=== PATIENT | male | born 1955 | race African-American/Black ===

== ENCOUNTER 2018-02-21 22:07 | Emergency (ER) | payer MEDICARE, OTHER ==
[2018-02-22] MEDS ORDERED: SODIUM CHLORIDE 0.9% 1,000 ML IV STA (00:18)
[2018-02-22] MEDS ORDERED: KETOROLAC 30 MG/ML 1 ML VIAL IM STA (00:25)
[2018-02-22] MEDS ORDERED: ONDANSETRON 4 MG/2 ML VIAL IVP STA (00:25)
[2018-02-22 00:30] LABS: Appearance,Urine Clear (Clear); Bilirubin,Urine Negative (Negative); Blood,Urine Negative (Negative); Color,Urine Light Yellow; Glucose,Urine (UA) Negative (Negative); Ketones,Urine Negative (Negative); Leukocyte Esterase,Urine Negative (Negative); Nitrite,Urine Negative (Negative); Protein,Urine Negative (Negative); Specific Gravity,Urine 1.011 (1.001-1.035); Urobilinogen,Urine <2.0 mg/dL (<2.0)
--- NOTE | 2018-02-22 00:36 | ED ---
General Adult HPI - General Chief complaint: Back Pain/Injury Stated complaint: Mental Health Time Seen by Provider: 02/21/18 23:54 Source: patient, RN notes reviewed Mode of arrival: ambulatory Limitations: no limitations - History of Present Illness Initial comments: 62-year-old male presents to the emergency department for a chief complaint of left flank pain times one week. Patient states the pain radiates around into his abdomen. Patient denies noticing any blood in the urine. Patient denies a history of kidney stones. Patient states he has vomited twice but is nauseous right now. Patient has been having normal bowel movements. Patient denies fevers or chills at home. Patient denies any abdominal surgeries besides a hernia repair years ago of the umbilicus.Patient has no other complaints at this time including shortness of breath, chest pain, abdominal pain, nausea or vomiting, headache, or visual changes. - Related Data Previous Rx's Medication Instructions Recorded Magnesium Citrate [Citrate of 296 ml PO ONCE #296 ml 02/22/18 Magnesia] Allergies Allergy/AdvReac Type Severity Reaction Status Date / Time No Known Allergies Allergy Verified 02/21/18 22:35 Review of Systems ROS Statement: Those systems with pertinent positive or pertinent negative responses have been documented in the HPI. ROS Other: All systems not noted in ROS Statement are negative. Past Medical History Past Medical History: No Reported History History of Any Multi-Drug Resistant Organisms: None Reported Past Surgical History: Orthopedic Surgery Past Psychological History: Depression Smoking Status: Current every day smoker Past Alcohol Use History: Heavy Past Drug Use History: None Reported General Exam Limitations: no limitations General appearance: alert, in no apparent distress Head exam: Present: atraumatic, normocephalic, normal inspection Eye exam: Present: normal appearance. Absent: scleral icterus, conjunctival injection ENT exam: Present: normal exam, mucous membranes moist Neck exam: Present: normal inspection, full ROM. Absent: tenderness, meningismus, lymphadenopathy Respiratory exam: Present: normal lung sounds bilaterally. Absent: respiratory distress, wheezes, rales, rhonchi, stridor Cardiovascular Exam: Present: regular rate, normal rhythm, normal heart sounds. Absent: systolic murmur, diastolic murmur, rubs, gallop, clicks GI/Abdominal exam: Present: soft, tenderness (mild LLQ tenderness), normal bowel sounds. Absent: distended, guarding, rebound, rigid Back exam: Present: CVA tenderness (L) Neurological exam: Present: alert, oriented X3, CN II-XII intact Psychiatric exam: Present: normal affect, normal mood Course Vital Signs 02/21/18 02/22/18 22:30 01:48 Temperature 98.6 F Pulse Rate 77 71 Respiratory 20 18 Rate Blood Pressure 156/79 180/94 O2 Sat by Pulse 100 100 Oximetry Medical Decision Making - Medical Decision Making 62-year-old male presents to the emergency department for a chief complaint of left flank pain times one week radiating into the abdomen. Patient has vomited twice. No history of stones. On exam patient has left CVA tenderness as well as some mild left lower quadrant tenderness. CBC and CMP unremarkable. CT shows mild atelectasis at the lung bases. Low-density desiccation at the renal papilla could relate to mild form of medullary sponge kidney. No sign of acute abdomen or pelvis. I did review the computed tomography scan with Dr Lambert and patient appears to be constipated. Patient will be given a prescription for magnesium citrate. He will follow up with primary care in 1-2 days. He will return to the emergency department if he has any worsening symptoms. - Lab Data Result diagrams: 02/22/18 00:50 02/22/18 00:50 Lab Results 02/22/18 02/22/18 02/22/18 Range/Units 00:04 00:50 00:50 WBC 6.4 (3.8-10.6) k/uL RBC 3.91 L (4.30-5.90) m/uL Hgb 12.6 L (13.0-17.5) gm/dL Hct 39.4 (39.0-53.0) % MCV 100.7 H (80.0-100.0) fL MCH 32.1 (25.0-35.0) pg MCHC 31.8 (31.0-37.0) g/dL RDW 13.7 (11.5-15.5) % Plt Count 344 (150-450) k/uL Neutrophils % 54 % Lymphocytes % 32 % Monocytes % 8 % Eosinophils % 2 % Basophils % 1 % Neutrophils # 3.5 (1.3-7.7) k/uL Lymphocytes # 2.0 (1.0-4.8) k/uL Monocytes # 0.5 (0-1.0) k/uL Eosinophils # 0.1 (0-0.7) k/uL Basophils # 0.1 (0-0.2) k/uL Macrocytosis Slight Sodium 138 (137-145) mmol/L Potassium 4.5 (3.5-5.1) mmol/L Chloride 104 (98-107) mmol/L Carbon Dioxide 25 (22-30) mmol/L Anion Gap 9 mmol/L BUN 16 (9-20) mg/dL Creatinine 0.60 L (0.66-1.25) mg/dL Est GFR (CKD-EPI)AfAm >90 (>60 ml/min/1.73 sqM) Est GFR (CKD-EPI)NonAf >90 (>60 ml/min/1.73 sqM) Glucose 91 (74-99) mg/dL Calcium 9.7 (8.4-10.2) mg/dL Total Bilirubin 0.2 (0.2-1.3) mg/dL AST 27 (17-59) U/L ALT 32 (21-72) U/L Alkaline Phosphatase 69 (38-126) U/L Total Protein 7.3 (6.3-8.2) g/dL Albumin 4.4 (3.5-5.0) g/dL Amylase 104 (30-110) U/L Lipase 98 (23-300) U/L Urine Color Light Yellow Urine Appearance Clear (Clear) Urine pH 7.0 (5.0-8.0) Ur Specific Alliance 1.011 (1.001-1.035) Urine Protein Negative (Negative) Urine Glucose (UA) Negative (Negative) Urine Ketones Negative (Negative) Urine Blood Negative (Negative) Urine Nitrite Negative (Negative) Urine Bilirubin Negative (Negative) Urine Urobilinogen <2.0 (<2.0) mg/dL Ur Leukocyte Esterase Negative (Negative) Disposition Clinical Impression: Abdominal pain, Constipation Disposition: HOME SELF-CARE Condition: Good Instructions: Constipation (ED) Additional Instructions: Please take prescription as directed. Please follow-up with primary care in 1- 2 days. Return to the emergency department if you have any worsening symptoms. Prescriptions: Magnesium Citrate [Citrate of Magnesia] 296 ml PO ONCE #296 ml Is patient prescribed a controlled substance at d/c from ED?: No Referrals: Rustam Chiu MD [REFERRING] - 1-2 days Time of Disposition: 02:01
[2018-02-22 01:12] LABS: Basophils # (A) 0.1 k/uL (0-0.2); Basophils % (A) 1 %; Eosinophils # (A) 0.1 k/uL (0-0.7); Eosinophils % (A) 2 %; HCT 39.4 % (39.0-53.0); HGB 12.6 gm/dL (13.0-17.5); Lymphocytes % (A) 32 %; MCH 32.1 pg (25.0-35.0); MCHC 31.8 g/dL (31.0-37.0); MCV 100.7 fL (80.0-100.0); Macrocytosis Slight; Mean Platelet Volume 6.7; Monocytes # (A) 0.5 k/uL (0-1.0); Monocytes % (A) 8 %; Neutrophils # (A) 3.5 k/uL (1.3-7.7); Neutrophils % (A) 54 %; Platelet Count 344 k/uL (150-450); RBC 3.91 m/uL (4.30-5.90); RDW 13.7 % (11.5-15.5); WBC 6.4 k/uL (3.8-10.6)
[2018-02-22 01:17] LABS: ALT 32 U/L (21-72); AST 27 U/L (17-59); Albumin 4.4 g/dL (3.5-5.0); Alkaline Phosphatase 69 U/L (38-126); Amylase 104 U/L (30-110); Anion Gap 9 mmol/L; Blood Urea Nitrogen 16 mg/dL (9-20); Calcium 9.7 mg/dL (8.4-10.2); Carbon Dioxide 25 mmol/L (22-30); Chloride 104 mmol/L (98-107); Glucose 91 mg/dL (74-99); Lipase 98 U/L (23-300); Potassium 4.5 mmol/L (3.5-5.1); Sodium 138 mmol/L (137-145); Total Bilirubin 0.2 mg/dL (0.2-1.3); Total Protein 7.3 g/dL (6.3-8.2)
--- NOTE | 2018-02-22 01:32 | CT ---
EXAMINATION TYPE: CT abdomen pelvis wo con DATE OF EXAM: 02/22/2018 COMPARISON: None HISTORY: Abd Pain CT DLP: 262.50 mGycm Automated exposure control for dose reduction was used. TECHNIQUE: Helical acquisition of images was performed from the lung bases through the pelvis. FINDINGS: There is some patchy linear density at the posterior lung bases. There is no pleural effusion. Heart size is normal. Liver shows no focal defect. Spleen and pancreas appear normal. Bile ducts are not dilated. There is no adrenal mass. Kidneys have normal size and contour. There is no hydronephrosis. There are small areas of calcification at the renal papilla. Ureters are not dilated. Abdominal aorta is atheromatous. There is no retroperitoneal adenopathy. There is no ascites. Bladder distends smoothly. I see no intestinal wall thickening. There are no dilated loops. Bony structures appear intact. IMPRESSION: MILD ATELECTASIS AT THE LUNG BASES. ATHEROSCLEROTIC VASCULAR DISEASE. LOW-DENSITY CALCIFICATION AT THE RENAL PAPILLA COULD RELATE TO MILD FORM OF MEDULLARY SPONGE KIDNEY. NO HYDRONEPHROSIS. NO SIGN OF ACUTE ABDOMEN AND PELVIS.
[2018-02-22 01:49] VITALS: RESP 18
[2018-02-22 03:02] VITALS: BP 129/79; PULSE 87; TEMP 98
== END 2018-02-22 03:03 | disposition home or self-care (01) ==
LOC: EC 22:07
DX: K59.00 Constipation, unspecified (principal); R10.32 Left lower quadrant pain; R11.2 Nausea with vomiting, unspecified; N28.89 Other specified disorders of kidney and ureter; J98.11 Atelectasis; F17.200 Nicotine dependence, unspecified, uncomplicated
CPT/HCPCS: 99284; 96374; 96361; 96372; 36415; 80053; 82150; 83690; 85025; 81003; 87086; 74176; J2405; J1885

== ENCOUNTER 2018-02-23 21:06 | Emergency (ER) | payer MEDICARE, OTHER ==
[2018-02-23 21:11] VITALS: TEMP 98.7
--- NOTE | 2018-02-23 21:53 | ED ---
Abdominal Pain HPI - General Chief Complaint: Abdominal Pain Stated Complaint: Abd pain Time Seen by Provider: 02/23/18 21:27 Source: patient, RN notes reviewed Mode of arrival: ambulatory Limitations: no limitations - History of Present Illness Initial Comments: This a 62-year-old male presents emergency Department with chief complaint of abdominal pain. Patient states he seen here 2 days ago for abdominal pain states usually is constipated but symptoms are getting worse. He was given a prescription for magnesium citrate but states that his insurance would not cover it so he's been doing prune juice. He states that he has some liquid output is no formed stool. He states that he now feels distended, worsening pain rates his back. Patient denies any dysuria, hematuria. Patient had a prior smoker hernia repair when he is an infant denies any other abdominal surgeries. Patient denies any fever, chills, chest pain or shortness breath. Patient states that he has been at [facility] for last couple weeks for alcohol detox and alcohol program. - Related Data Previous Rx's Medication Instructions Recorded Magnesium Citrate [Citrate of 296 ml PO ONCE #296 ml 02/22/18 Magnesia] Allergies Allergy/AdvReac Type Severity Reaction Status Date / Time No Known Allergies Allergy Verified 02/23/18 21:11 Review of Systems ROS Statement: Those systems with pertinent positive or pertinent negative responses have been documented in the HPI. ROS Other: All systems not noted in ROS Statement are negative. Past Medical History Past Medical History: No Reported History History of Any Multi-Drug Resistant Organisms: None Reported Past Surgical History: Orthopedic Surgery Past Psychological History: Depression Smoking Status: Current every day smoker Past Alcohol Use History: Heavy Past Drug Use History: None Reported General Exam Limitations: no limitations General appearance: alert, in no apparent distress Head exam: Present: atraumatic, normocephalic, normal inspection Neck exam: Present: normal inspection. Absent: tenderness, meningismus, lymphadenopathy Respiratory exam: Present: normal lung sounds bilaterally. Absent: respiratory distress, wheezes, rales, rhonchi, stridor Cardiovascular Exam: Present: regular rate, normal rhythm, normal heart sounds. Absent: systolic murmur, diastolic murmur, rubs, gallop, clicks GI/Abdominal exam: Present: soft, tenderness (Diffuse tenderness), hyperactive bowel sounds. Absent: distended, guarding, rebound, rigid Back exam: Absent: CVA tenderness (R), CVA tenderness (L) Skin exam: Present: warm, dry, intact, normal color. Absent: rash Course Vital Signs 02/23/18 02/23/18 21:09 23:47 Temperature 98.7 F Pulse Rate 75 59 L Respiratory 18 19 Rate Blood Pressure 162/99 158/77 O2 Sat by Pulse 100 100 Oximetry Medical Decision Making - Medical Decision Making 62-year-old male presented for constipation. Patient was seen here approximately 36 hours ago for abdominal pain he had lab work, CT was found to be constipated. He was unable to fill the prescription for magnesium citrate. Patient had an enema here did have some stool out he does have distention of his colon related to gas. Patient will be given medications to go home with at this time return parameters were discussed. Disposition Clinical Impression: Constipation, Abdominal pain Disposition: HOME SELF-CARE Condition: Stable Instructions: Constipation (ED) Additional Instructions: Please return to the Emergency Department if symptoms worsen or any other concerns. Is patient prescribed a controlled substance at d/c from ED?: No Referrals: None,Stated [Primary Care Provider] - 1-2 days Time of Disposition: 00:12
--- NOTE | 2018-02-23 22:03 | XR ---
EXAMINATION TYPE: XR KUB DATE OF EXAM: 02/23/2018 CLINICAL DATA: 62-year-old male bilateral flank pain, [facility] COMPARISON: CT 11/08/2017 FINDINGS: Lung bases are clear. No evidence for free intraperitoneal air. No dilated small bowel or air-fluid levels. Gas in the colon with mild stool. Air extends distally to the rectum. Bowel content largely obscures the renal shadows. Metallic densities project over the lateral lower right hemithorax. Possible pleural parenchymal scar ring at the right base. IMPRESSION: Gassy colon with mild stool burden.No evidence of bowel obstruction or free intraperitoneal air.
[2018-02-23] MEDS ORDERED: SIMETHICONE 80 MG CHEWABLE PO STA (22:52)
[2018-02-23] MEDS ORDERED: DICYCLOMINE 10 MG/ML 2 ML AMP IM STA (23:14)
[2018-02-23 23:48] VITALS: BP 158/77; PULSE 59; RESP 19
[2018-02-24] MEDS ORDERED: MAGNESIUM CITRATE 296 ML BOTTLE PO ONE (00:12)
== END 2018-02-24 01:02 | disposition home or self-care (01) ==
LOC: EC 21:06
DX: K59.00 Constipation, unspecified (principal); R10.9 Unspecified abdominal pain; R14.0 Abdominal distension (gaseous); F17.200 Nicotine dependence, unspecified, uncomplicated
CPT/HCPCS: 74018; 99284; 96372; J0500